=== PATIENT | female | born 1980 | race Caucasian/White ===

== ENCOUNTER 2023-11-06 17:45 | Inpatient (IN) | payer BC ==
[2023-11-06] MEDS ORDERED: NALOXONE 0.4 MG/ML 1 ML VIAL IV PRN (19:17)
[2023-11-06] MEDS ORDERED: ONDANSETRON 4 MG/2 ML VIAL IVP PRN (19:17)
--- NOTE | 2023-11-06 19:17 | ED ---
Animal Bite HPI - General Chief Complaint: Skin/Abscess/Foreign Body Stated Complaint: cat bite Time Seen by Provider: 11/06/23 18:52 Source: patient, RN notes reviewed, old records reviewed Mode of arrival: ambulatory Limitations: no limitations - History of Present Illness Initial Comments: This is a 43 female to ER for evaluation of cat bite cat bite to right hand, initially patient did have minimal pain that went away no real significant bleeding. Patient noticed really no symptoms yesterday and then had significant amount of swelling in the hand and streaking up the arm noted today with chills fevers body aches and just generalized feeling unwell. Patient has no medical history takes no medications no other complaints MD Complaint: animal bite, other (Cat bite right hand) -: days(s) (2) Right: Arm, Elbow, Forearm, Hand Animal: cat Description: household pet Mechanism: bite Pain Description: sharp Severity scale (1-10): 7 Associated Symptoms: none Treatments Prior to Arrival: other (0) - Related Data Previous Rx's Medication Instructions Recorded Amoxic-Pot Clav 875-125Mg 1 tab PO BID 10 Days #20 tab 11/09/23 [Augmentin 875-125] Allergies Allergy/AdvReac Type Severity Reaction Status Date / Time No Known Allergies Allergy Verified 11/06/23 19:13 Review of Systems ROS Statement: Those systems with pertinent positive or pertinent negative responses have been documented in the HPI. ROS Other: All systems not noted in ROS Statement are negative. Past Medical History Past Medical History: No Reported History History of Any Multi-Drug Resistant Organisms: None Reported Past Surgical History: Adenoidectomy, Tonsillectomy Additional Past Surgical History / Comment(s): back surgery Past Psychological History: No Psychological Hx Reported Smoking Status: Current every day smoker Past Alcohol Use History: Occasional Past Drug Use History: None Reported General Exam Limitations: no limitations General appearance: alert, in no apparent distress Head exam: Present: atraumatic, normocephalic, normal inspection Eye exam: Present: normal appearance, PERRL, EOMI. Absent: scleral icterus, conjunctival injection, periorbital swelling ENT exam: Present: normal exam, mucous membranes moist Neck exam: Present: normal inspection. Absent: tenderness, meningismus, lympha denopathy Respiratory exam: Present: normal lung sounds bilaterally. Absent: respiratory distress, wheezes, rales, rhonchi, stridor Cardiovascular Exam: Present: regular rate, normal rhythm, normal heart sounds. Absent: systolic murmur, diastolic murmur, rubs, gallop, clicks GI/Abdominal exam: Present: soft, normal bowel sounds. Absent: distended, tenderness, guarding, rebound, rigid Extremities exam: Present: normal inspection, full ROM, normal capillary refill. Absent: tenderness, pedal edema, joint swelling, calf tenderness Back exam: Present: normal inspection Neurological exam: Present: alert, oriented X3, CN II-XII intact Psychiatric exam: Present: normal affect, normal mood Skin exam: Present: warm, dry, intact, normal color. Absent: rash Course Vital Signs 11/06/23 11/06/23 11/06/23 18:07 19:47 21:13 Temperature 99.4 F Pulse Rate 97 80 82 Respiratory 18 16 17 Rate Blood Pressure 119/86 126/83 104/62 O2 Sat by Pulse 95 97 96 Oximetry - Reevaluation(s) Reevaluation #1: 11/06/23 19:15 Medical records reviewed Reevaluation #2: 11/06/23 19:15 Patient symptoms unchanged Reevaluation #3: 11/06/23 19:15 Patient informed of results questions answered Reevaluation #4: Was pt. sent in by a medical professional or institution ([facility], [employer], urgent care, hospital, or assisted...) When possible be specific @ -no Did you speak to anyone other than the patient for history (EMS, parent, family, police, friend...)? What history was obtained from this source @ -no Did you review nursing and triage notes (agree or disagree)? Why? @ -agree Are old charts reviewed (outside hosp., previous admission, EMS record, old EKG, old radiological studies, urgent care reports/EKG's, assisted records)? Report findings @ -yes Differential Diagnosis (chest pain, altered mental status, abdominal pain women, abdominal pain men, vaginal bleeding, weakness, fever, dyspnea, syncope, hea dache, dizziness, GI bleed, back pain, seizure, CVA, palpatations, mental health, musculoskeletal)? @ -prior EKG interpreted by me (3pts min.). @ -no X-rays interpreted by me (1pt min.). @ -no CT interpreted by me (1pt min.). @ -no U/S interpreted by me (1pt. min.). @ -no What testing was considered but not performed or refused? (CT, X-rays, U/S, labs)? Why? @ -none What meds were considered but not given or refused? Why? @ -none Did you discuss the management of the patient with other professionals (professionals i.e. Dr., PA, [employer], lab, RT, psych nurse, social worker aide, cafeteria supervisor, teacher, radiation safety officer, family independence case manager)? Give summary @ -no Was smoking cessation discussed for >3mins.? @ -no Was critical care preformed (if so, how long)? @ -no Were there social determinants of health that impacted care today? How? (Homelessness, low income, unemployed, alcoholism, drug addiction, young sportation, low edu. Level, literacy, decrease access to med. care, fdc, rehab)? @ -none Was there de-escalation of care discussed even if they declined (Discuss DNR or withdrawal of care, Hospice)? DNR status @ -no What co-morbidities impacted this encounter? (DM, HTN, Smoking, COPD, CAD, Cancer, CVA, ARF, Chemo, Hep., AIDS, mental health diagnosis, sleep apnea, morbid obesity)? @ -none Was patient admitted / discharged? Hospital course, mention meds given and route, prescriptions, significant lab abnormalities, going to OR and other pertinent info. @ - 43 female to ER with capillary to the right hand, patient has significant swelling to the right hand and arm severe with streaking, patient admitted on IV antibiotics and pain control Admitted Undiagnosed new problem with uncertain prognosis? @ -no Drug Therapy requiring intensive monitoring for toxicity (Heparin, Nitro, Insulin, Cardizem)? @ -no Were any procedures done? @ -no Diagnosis/symptom? @ -Cat bite with cellulitis and infection Acute, or Chronic, or Acute on Chronic? @ -Acute Uncomplicated (without systemic symptoms) or Complicated (systemic symptoms)? @ -Complicated Side effects of treatment? @ -no Exacerbation, Progression, or Severe Exacerbation? @ -exacerbation Poses a threat to patient's life @ -yes significant cat bite with infection - Consultations Consultation #1: Spoke with [facility] who agrees to admit this patient Medical Decision Making - Medical Decision Making 43 female to ER with capillary to the right hand, patient has significant swelling to the right hand and arm severe with streaking, patient admitted on IV antibiotics and pain control - Lab Data Result diagrams: 11/09/23 07:16 11/07/23 04:26 Lab Results 11/06/23 11/06/23 11/06/23 Range/Units 19:06 19:06 19:06 WBC 13.4 H (3.8-10.6) k/uL RBC 4.42 (3.80-5.40) m/uL Hgb 12.9 (11.4-16.0) gm/dL Hct 39.8 (34.0-46.0) % MCV 90.1 (80.0-100.0) fL MCH 29.3 (25.0-35.0) pg MCHC 32.5 (31.0-37.0) g/dL RDW 15.1 (11.5-15.5) % Plt Count 206 (150-450) k/uL MPV 9.4 Neutrophils % 72 % Lymphocytes % 18 % Monocytes % 8 % Eosinophils % 1 % Basophils % 0 % Neutrophils # 9.6 H (1.3-7.7) k/uL Lymphocytes # 2.4 (1.0-4.8) k/uL Monocytes # 1.0 (0-1.0) k/uL Eosinophils # 0.2 (0-0.7) k/uL Basophils # 0.0 (0-0.2) k/uL PT 10.1 (10.0-12.5) sec INR 0.9 (<1.2) APTT 25.1 (22.0-30.0) sec Sodium 138 (137-145) mmol/L Potassium 3.7 (3.5-5.1) mmol/L Chloride 105 (98-107) mmol/L Carbon Dioxide 26 (22-30) mmol/L Anion Gap 7 mmol/L BUN 9 (7-17) mg/dL Creatinine 0.70 (0.52-1.04) mg/dL Est GFR (CKD-EPI)AfAm >90 (>60 ml/min/1.73 sqM) Est GFR (CKD-EPI)NonAf >90 (>60 ml/min/1.73 sqM) Glucose 88 (74-99) mg/dL Plasma Lactic Acid Bennie (0.7-2.0) mmol/L Calcium 9.4 (8.4-10.2) mg/dL Phosphorus 3.4 (2.5-4.5) mg/dL Magnesium 1.9 (1.6-2.3) mg/dL Total Bilirubin 0.6 (0.2-1.3) mg/dL AST 25 (14-36) U/L ALT 15 (4-34) U/L Alkaline Phosphatase 86 (38-126) U/L Troponin I (0.000-0.034) ng/mL NT-Pro-B Natriuret Pep 109 pg/mL Total Protein 6.8 (6.3-8.2) g/dL Albumin 4.2 (3.5-5.0) g/dL 11/06/23 11/06/23 Range/Units 19:06 19:06 WBC (3.8-10.6) k/uL RBC (3.80-5.40) m/uL Hgb (11.4-16.0) gm/dL Hct (34.0-46.0) % MCV (80.0-100.0) fL MCH (25.0-35.0) pg MCHC (31.0-37.0) g/dL RDW (11.5-15.5) % Plt Count (150-450) k/uL MPV Neutrophils % % Lymphocytes % % Monocytes % % Eosinophils % % Basophils % % Neutrophils # (1.3-7.7) k/uL Lymphocytes # (1.0-4.8) k/uL Monocytes # (0-1.0) k/uL Eosinophils # (0-0.7) k/uL Basophils # (0-0.2) k/uL PT (10.0-12.5) sec INR (<1.2) APTT (22.0-30.0) sec Sodium (137-145) mmol/L Potassium (3.5-5.1) mmol/L Chloride (98-107) mmol/L Carbon Dioxide (22-30) mmol/L Anion Gap mmol/L BUN (7-17) mg/dL Creatinine (0.52-1.04) mg/dL Est GFR (CKD-EPI)AfAm (>60 ml/min/1.73 sqM) Est GFR (CKD-EPI)NonAf (>60 ml/min/1.73 sqM) Glucose (74-99) mg/dL Plasma Lactic Acid Bennie 1.3 (0.7-2.0) mmol/L Calcium (8.4-10.2) mg/dL Phosphorus (2.5-4.5) mg/dL Magnesium (1.6-2.3) mg/dL Total Bilirubin (0.2-1.3) mg/dL AST (14-36) U/L ALT (4-34) U/L Alkaline Phosphatase (38-126) U/L Troponin I <0.012 (0.000-0.034) ng/mL NT-Pro-B Natriuret Pep pg/mL Total Protein (6.3-8.2) g/dL Albumin (3.5-5.0) g/dL - EKG Data -: EKG Interpreted by Me (EKG is sinus 86 RI 156 QRS 104 QTc 445) Disposition Clinical Impression: Cat bite of right hand Disposition: ADMITTED IP TO THIS HOSP Condition: Serious Is patient prescribed a controlled substance at d/c from ED?: No Time of Disposition: 19:35
[2023-11-06] MEDS: SODIUM CHLORIDE 0.9% 1,000 ML IV STA ×2 (19:32→19:34)
[2023-11-06] MEDS: PIPERACILLIN-TAZOBACTAM 3.375 GM in SODIUM CHLORIDE 0.9% 100 ML IVPB STA (19:36)
[2023-11-06] MEDS: ONDANSETRON 4 MG/2 ML VIAL IVP STA (19:40)
[2023-11-06] MEDS: MORPHINE SULFATE 4 MG/ML SYRINGE IV STA (19:40)
[2023-11-06 20:36] LABS: Basophils % (A) 0 %; Eosinophils # (A) 0.2 k/uL (0-0.7); Eosinophils % (A) 1 %; HCT 39.8 % (34.0-46.0); HGB 12.9 gm/dL (11.4-16.0); Lymphocytes # (A) 2.4 k/uL (1.0-4.8); Lymphocytes % (A) 18 %; MCH 29.3 pg (25.0-35.0); MCHC 32.5 g/dL (31.0-37.0); MCV 90.1 fL (80.0-100.0); Mean Platelet Volume 9.4; Monocytes % (A) 8 %; Neutrophils # (A) 9.6 k/uL (1.3-7.7); Neutrophils % (A) 72 %; Platelet Count 206 k/uL (150-450); RBC 4.42 m/uL (3.80-5.40); RDW 15.1 % (11.5-15.5); WBC 13.4 k/uL (3.8-10.6)
[2023-11-06 20:53] LABS: INR 0.9 (<1.2); Partial Thromboplastin Time 25.1 sec (22.0-30.0); Prothrombin Time 10.1 sec (10.0-12.5)
[2023-11-06 21:05] LABS: ALT 15 U/L (4-34); AST 25 U/L (14-36); African American GFR (CKD) >90 (>60 ml/min/1.73 sqM); Albumin 4.2 g/dL (3.5-5.0); Alkaline Phosphatase 86 U/L (38-126); Anion Gap 7 mmol/L; Blood Urea Nitrogen 9 mg/dL (7-17); Calcium 9.4 mg/dL (8.4-10.2); Carbon Dioxide 26 mmol/L (22-30); Chloride 105 mmol/L (98-107); Glucose 88 mg/dL (74-99); Magnesium 1.9 mg/dL (1.6-2.3); Non-African American GFR(CKD) >90 (>60 ml/min/1.73 sqM); Phosphorus 3.4 mg/dL (2.5-4.5); Potassium 3.7 mmol/L (3.5-5.1); Sodium 138 mmol/L (137-145); Total Bilirubin 0.6 mg/dL (0.2-1.3); Total Protein 6.8 g/dL (6.3-8.2)
[2023-11-06 21:09] LABS: NT-Pro-B-Type Natriuretic Pept 109 pg/mL
[2023-11-07] MEDS: PIPERACILLIN-TAZOBACTAM 3.375 GM in SODIUM CHLORIDE 0.9% 100 ML IVPB SCH (03:03)
[2023-11-07] MEDS: MORPHINE SULFATE 4 MG/ML SYRINGE IV PRN (03:06)
[2023-11-07 09:24] LABS: Basophils # (A) 0.04 X 10*3/uL (0.00-0.10); Basophils % (A) 0.4 %; Eosinophils # (A) 0.33 X 10*3/uL (0.04-0.35); HCT 36.6 % (37.2-46.3); HGB 11.3 g/dL (12.0-15.0); Lymphocytes # (A) 2.43 X 10*3/uL (0.90-5.00); Lymphocytes % (A) 21.7 %; MCHC 30.9 g/dL (32.0-37.0); MCV 90.8 FL (80.0-97.0); Mean Platelet Volume 11.8 FL (9.5-12.2); Monocytes # (A) 1.16 X 10*3/uL (0.20-1.00); Monocytes % (A) 10.4 %; NRBC Per 100 WBC 0 X 10*3/uL (0.00-0.01); Neutrophils # (A) 7.19 X 10*3/uL (1.80-7.70); Neutrophils % (A) 64.2 %; Platelet Count 192 X 10*3/uL (140-440); RBC 4.03 X 10*6/uL (4.10-5.20); RDW 15.6 % (11.5-14.5); WBC 11.18 X 10*3/uL (4.50-10.00)
--- NOTE | 2023-11-07 09:59 | P.CNOR ---
History of Present Illness - [facility] Consult date: 11/07/23 Consult reason: other (Right hand pain status post cat bite) History of present illness: Patient is a very pleasant 43-year-old female who had a cat bite in her right hand 2 days ago. It was a stray cat and initially after the bite it was not giving her any problems but then started to swell and give pain. She presented to the emergency room when she had significant swelling over the dorsum of her right hand particularly at her index and middle finger and was having redness swelling and streaking extending up her arm. She was started on IV antibiotics and feels that she is having great improvement today. She says that the redness and streaking up her arm is essentially gone. She says the area is mainly localized on the back of her hand particularly at her index and middle finger and somewhat on the volar aspect of her hand around her MCP joints. She says she can move her hands well. She denies any fevers. She denies any specific numbness and tingling but feels sore and tight all over her hands. She denies any other injury to your hands or fingers. Denies any prior problems with her hands. She is right-hand dominant. Review of Systems She had some chills yesterday. She says it is not completely resolved. She feels her right arm is doing much better. She denies any prior injury to her hand or fingers. She normally does not have any limitations at her upper extremities. She is right-hand dominant Past Medical History Past Medical History: No Reported History History of Any Multi-Drug Resistant Organisms: None Reported Past Surgical History: Adenoidectomy, Tonsillectomy Additional Past Surgical History / Comment(s): back surgery Past Anesthesia/Blood Transfusion Reactions: No Reported Reaction Past Psychological History: No Psychological Hx Reported Smoking Status: Current every day smoker Past Alcohol Use History: Occasional Past Drug Use History: None Reported Medications and Allergies Home Medications Medication Instructions Recorded Confirmed Type No Known Home Medications 11/06/23 11/06/23 History Allergies Allergy/AdvReac Type Severity Reaction Status Date / Time No Known Allergies Allergy Verified 11/06/23 19:13 Physical Examination Osteopathic Statement: *. No significant issues noted on an osteopathic structural exam other than those noted in the History and Physical/Consult. - Wrist & Hand right Location of pain: dorsal hand (There is no significant erythema. There is no specific point of abscess. The puncture wounds on the finger appear clear. There is diffuse swelling at the wrist hand and fingers.) Wrist pain modifiers: with motion, terminal flexion Index finger pain modifiers: with motion Long finger pain modifiers: with motion Symptoms: dorsal hand swelling (There is no apparent abscess or specific fluid collection. There is diffuse swelling. She is able to flex her hand and fingers. She does not have pain out of proportion. There is some tenderness at the PIP and MCP joints at her index and long fingers. She says she has great improvement from yes) Appearance: hand warmth (diffuse), puncture Tenderness with palpation: index finger, long finger ROM: long finger MP joint: 50 degrees ROM: long finger PIP joint: 50 degrees Results - Labs Labs: Abnormal Lab Results - Last 24 Hours (Table) 11/06/23 11/07/23 Range/Units 19:06 04:26 WBC 13.4 H 11.18 H (3.8-10.6) k/uL RBC 4.03 L (4.10-5.20) X 10*6/uL Hgb 11.3 L (12.0-15.0) g/dL Hct 36.6 L (37.2-46.3) % MCHC 30.9 L (32.0-37.0) g/dL RDW 15.6 H (11.5-14.5) % Neutrophils # 9.6 H (1.3-7.7) k/uL Monocytes # 1.16 H (0.20-1.00) X 10*3/uL H & H 11/06/23 11/07/23 Range/Units 19:06 04:26 Hgb 12.9 11.3 L (11.4-16.0) gm/dL Hct 39.8 36.6 L (34.0-46.0) % Coagulation 11/06/23 Range/Units 19:06 INR 0.9 (<1.2) Result Diagrams: 11/07/23 04:26 11/06/23 19:06 Assessment and Plan Assessment: Status post cat bite at the right hand Infection with cellulitis at the right upper extremity Right hand and wrist pain located primarily at the proximal index and long finger Significant improvement from yesterday with the IV antibiotics Plan: Status post cat bite at the right hand Infection with cellulitis at the right upper extremity Right hand and wrist pain located primarily at the proximal index and long finger Significant improvement from yesterday with the IV antibiotics The patient sustained a cat bite a couple days ago and was experiencing infection. It seems to be primarily cellulitis as she has had great improvement with her IV antibiotics. She is localizing more at her index and long finger where the bite occurred. There is no apparent fluid collection or abscess discretely. There is no significant erythema over the area. 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 She does not have any pain out of proportion with her exam. She feels she is making great improvement and I think that she should continue with the IV antibiotics for another day. Today I would not plan on surgical intervention. If she continues to improve with the IV antibiotics she may be able to convert over to oral medication and close follow-up. However if she is having worsening or if the area becomes to ahead where there is an obvious fluid collection we could also consider surgical intervention for irrigation and debridement. I discussed this with her and she understands. We will plan to monitor overnight with the IV antibiotics. Will keep her n.p.o. after midnight tonight in case her symptoms worsen or the area becomes discrete for possible surgery. Will follow her closely, she will be n.p.o. after midnight. Will make further decisions for continuing conservative treatment versus surgical intervention in the morning. I discussed the injury with her and the fact that she is having significant imp rovement. I discussed the risk complications alternatives benefits of the various treatments ranging from conservative to surgical. I answered her questions best my ability limb she understand and she we will proceed as above to be n.p.o. after midnight to have further determination on continued care tomorrow.
[2023-11-07 10:19] LABS: ALT 10 U/L (8-44); AST 17 U/L (13-35); Albumin 3.5 g/dL (3.8-4.9); Albumin/Globulin Ratio 1.75 Ratio (1.60-3.17); Alkaline Phosphatase 70 U/L (41-126); BUN/Creat Ratio 9.29 Ratio (12.00-20.00); Blood Urea Nitrogen 6.5 mg/dL (9.0-27.0); Calcium 8.4 mg/dL (8.7-10.3); Carbon Dioxide 21.8 mmol/L (21.6-31.8); Chloride 107 mmol/L (96-109); Glucose 99 mg/dL (70-110); Lipase 196 U/L (14-63); Magnesium 1.9 mg/dL (1.5-2.4); Phosphorus 3.6 mg/dL (2.4-5.1); Potassium 3.7 mmol/L (3.5-5.5); Sodium 139 mmol/L (135-145); Total Bilirubin 0.3 mg/dL (0.3-1.2); Total Protein 5.5 g/dL (6.2-8.2)
--- NOTE | 2023-11-07 13:36 | P.HPIM ---
History of Present Illness Patient is a pleasant 43 years old female with no significant past medical history. Presents because of right hand pain and swelling. It happened after a cat bit her on night on 11/03. 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 Other than that patient denies any other specific complaints She is afebrile, she has mild leukocytosis, other labs are reviewed and they are unremarkable She started on Zosyn Review of Systems Review of systems CONSTITUTIONAL: No fever, no malaise, no fatigue. HEENT: No recent visual problems or hearing problems. Denied any sore throat. CARDIOVASCULAR: No orthopnea, PND, no palpitations, no syncope. PULMONARY: No shortness of breath, no cough, no hemoptysis. GASTROINTESTINAL: No diarrhea, no nausea, no vomiting, no abdominal pain. Normoactive bowel sounds. NEUROLOGICAL: No headaches, no weakness, no numbness. HEMATOLOGICAL: Denies any bleeding or petechiae. GENITOURINARY: Denies any burning micturition, frequency, or urgency. MUSCULOSKELETAL/RHEUMATOLOGICAL: Denies any joint pain, swelling, or any muscle pain. ENDOCRINE: Denies any polyuria or polydipsia. Past Medical History Past Medical History: No Reported History History of Any Multi-Drug Resistant Organisms: None Reported Past Surgical History: Adenoidectomy, Tonsillectomy Additional Past Surgical History / Comment(s): back surgery Past Anesthesia/Blood Transfusion Reactions: No Reported Reaction Past Psychological History: No Psychological Hx Reported Smoking Status: Current every day smoker Past Alcohol Use History: Occasional Past Drug Use History: None Reported Medications and Allergies Home Medications Medication Instructions Recorded Confirmed Type No Known Home Medications 11/06/23 11/06/23 History Allergies Allergy/AdvReac Type Severity Reaction Status Date / Time No Known Allergies Allergy Verified 11/06/23 19:13 Physical Exam Vitals: Vital Signs Temp Pulse Pulse Resp BP BP Pulse Ox 11/07/23 12:55 98.1 F 71 16 128/85 98 11/07/23 08:00 98.7 F 90 17 111/72 98 11/07/23 07:57 98.4 F 72 18 132/71 95 11/07/23 03:10 99.3 F 75 16 111/73 94 L 11/06/23 21:59 98.4 F 76 16 113/74 97 11/06/23 21:13 82 17 104/62 96 11/06/23 19:47 80 16 126/83 97 11/06/23 18:07 99.4 F 97 18 119/86 95 Intake and Output 11/06/23 11/07/23 11/07/23 22:59 06:59 14:59 Other: # Voids 3 Weight 90.718 kg 90.718 kg GENERAL: The patient is alert and oriented x3, not in any acute distress. Well developed, well nourished. HEENT: Pupils are round and equally reacting to light. EOMI. No scleral icterus. No conjunctival pallor. Normocephalic, atraumatic. No pharyngeal erythema. No thyromegaly. CARDIOVASCULAR: S1 and S2 present. No murmurs, rubs, or gallops. PULMONARY: Chest is clear to auscultation, no wheezing , no crackles. ABDOMEN: Soft, nontender, nondistended, normoactive bowel sounds. No palpable organomegaly. MUSCULOSKELETAL: No joint swelling or deformity. -EXTREMITIES: No cyanosis, clubbing, or pedal edema. Right hand swelling tender and mildly erythematous and mildly pinky, there is 2 puncture sites on the dorsum and ventral of the index proximal phalanx. There is some faint swelling and pinkish goes up to the forearm and the distal arm, currently to be seen but the patient states that it was worse. NEUROLOGICAL: Gross neurological examination did not reveal any focal deficits. SKIN: No rashes. no petechiae. Results CBC & Chem 7: 11/07/23 04:26 11/07/23 04:26 Labs: Abnormal Lab Results - Last 24 Hours (Table) 11/06/23 11/07/23 11/07/23 Range/Units 19:06 04:26 04:26 WBC 13.4 H 11.18 H (3.8-10.6) k/uL RBC 4.03 L (4.10-5.20) X 10*6/uL Hgb 11.3 L (12.0-15.0) g/dL Hct 36.6 L (37.2-46.3) % MCHC 30.9 L (32.0-37.0) g/dL RDW 15.6 H (11.5-14.5) % Neutrophils # 9.6 H (1.3-7.7) k/uL Monocytes # 1.16 H (0.20-1.00) X 10*3/uL BUN 6.5 L (9.0-27.0) mg/dL BUN/Creatinine Ratio 9.29 L (12.00-20.00) Ratio Calcium 8.4 L (8.7-10.3) mg/dL Total Protein 5.5 L (6.2-8.2) g/dL Albumin 3.5 L (3.8-4.9) g/dL Lipase 196 H (14-63) U/L Thrombosis Risk Factor Assmnt - Choose All That Apply Any of the Below Risk Factors Present?: Yes Each Factor Represents 1 point: Age 41-60 years, Varicose veins Other congenital or acquired thrombophilia - If yes, enter type in comment: No Thrombosis Risk Factor Assessment Total Risk Factor Score: 2 Thrombosis Risk Factor Assessment Level: Low Risk Assessment and Plan Assessment: Assessment/plan: -Right hand/index finger cat bite complicated with right hand cellulitis invol ving the right hand and extending to a lesser extent into the right forearm and distal arm which is improving. Orthopedic team evaluated the patient and they recommended no surgical intervention now. Patient currently treated with Zosyn. We are going to consult infectious disease team for further recommendation -Nicotine dependence, patient counseled and she agrees to quit. She declines nicotine patch GI and DVT prophylaxis, patient is mobile on the low risk. No need for GI prophylaxis
[2023-11-07] MEDS: AMPICILLIN-SULBACTAM 3 GM in SODIUM CHLORIDE 0.9% 100 ML IVPB SCH (17:53)
--- NOTE | 2023-11-08 06:58 | XR ---
EXAMINATION TYPE: XR hand complete RT DATE OF EXAM: 11/07/2023 9:59 AM CLINICAL INDICATION:Female, 43 years old with history of Swelling and pain status post cat bite; [facility] COMPARISON: None TECHNIQUE: 3 views FINDINGS: Osseous mineralization appears appropriate. No destructive bony lesion. No periostitis. No acute frac ture or dislocation. Joint spaces are maintained. Unremarkable soft tissues. No radiopaque foreign dileep dy is seen. IMPRESSION: No evidence of an acute osseous abnormality. No radiopaque foreign body.
--- NOTE | 2023-11-08 08:38 | P.PN ---
Progress Note - Text Progress Note Date: 11/08/23 Orthopedics: History of present illness: Patient is a very pleasant 50-year-old female who is seen and examined at bedside for further evaluation of her right wrist. He has been experiencing right hand swelling and erythema following a cat bite. She has been on antibiotic IV medication with Unasyn. Since being seen and examined yesterday, she has had significant improvement of her symptoms overall. She is not having any significant cellulitis at her right hand or up her right upper extremity. She has less swelling at her right hand. She has better range of motion of her right hand. She does not have a palpable fluid collection. She is very happy with her progress and feels she is ready for discharge today. She has been seen and examined by multiple medical providers including infectious disease, general surgery, and medicine. She is admitted to medicine. We did discuss she would need clearance by multiple medical providers prior to discharge home. Infectious disease will manage antibiotic medications. Patient has been NPO status. We will discontinue NPO and she may eat a regular diet. Physical Exam: Patient is awake, alert, and oriented 3 Vital signs stable Good chest excursion with deep inspiration and expiration Patient is able to perform active flexion and extension of the right wrist Mild generalized swelling over the dorsum of the right hand Patient is able to wiggle all fingers of the right hand and make a fist without difficulty No obvious cellulitis of the right upper extremity No streaking up the right upper extremity No palpable fluid collection over the area of the cat bite at the MCP Assessment: Right and erythema and swelling Status post right hand cat bite Right hand infection with cellulitis of the upper extremity Plan: 1. Patient sustained an infection with cellulitis at her right hand and right upper extremity status post cat bite. She has been on antibiotic medication IV with Unasyn per infectious disease. Since being seen examined yesterday, she had significant improvement of her symptoms overall. She does not have a palpable fluid collection at her right hand. The cellulitis has had significant proven. She is able to perform some wrist flexion and extension. She is able to analytics intern on the right. Currently, she may resume a regular diet. We are not planning for any surgical intervention in her right hand as she has had significant proved overall. We feel she could continue with conservative treatment with antibiotic medication. From an orthopedic standpoint, patient is cleared for discharge with close follow-up in the outpatient setting. Currently, we will plan to have her follow-up in the next [address] Patterson at [facility]. 2. Patient will continue be seen examined multiple medical providers including medicine and infectious disease. She will need to be cleared by these providers prior to discharge home. We would plan for infectious disease to prescribe antibiotic medications.
--- NOTE | 2023-11-08 13:13 | P.CONS ---
History of Present Illness - Reason for Consult Consult date: 11/07/23 Hand infection Requesting physician: Davey Gonzalez - Chief Complaint Right hand pain and swelling x few days - History of Present Illness Patient is a 43-year-old female with no significant past medical history current everyday smoker apparently the patient did have a cat bite to the right hand about 3 days present before presentation to the hospital patient mention the next day she has to go for concert and she decided to go there instead of seeking medical attention subsequently patient noticed to have increasing swelling redness and pain to the right hand patient describing the pain to be sharp moderate in intensity without any radiation with associated swelling redness and did not have any drainage no high-grade fever with the same for the patient present to the hospital on arrival to the ER she did have a low- grade fever of 99.4 F patient was not tachycardic or hypotensive patient did have white count of 13.4 creatinine 0.70 liver enzymes are normal blood cultures obtained which are currently pending patient did have a x-ray of the hand no evidence for acute bony abnormality patient was started on Zosyn infectious disease was consulted for further management of antibiotic therapy Review of Systems Positive point and negatives has been mentioned in the HPI, complete review of systems was performed and all other systems are negative Past Medical History Past Medical History: No Reported History History of Any Multi-Drug Resistant Organisms: None Reported Past Surgical History: Adenoidectomy, Tonsillectomy Additional Past Surgical History / Comment(s): back surgery Past Anesthesia/Blood Transfusion Reactions: No Reported Reaction Past Psychological History: No Psychological Hx Reported Smoking Status: Current every day smoker Past Alcohol Use History: Occasional Past Drug Use History: None Reported Medications and Allergies Home Medications Medication Instructions Recorded Confirmed Type No Known Home Medications 11/06/23 11/06/23 History Allergies Allergy/AdvReac Type Severity Reaction Status Date / Time No Known Allergies Allergy Verified 11/06/23 19:13 Physical Exam Vitals: Vital Signs Temp Pulse Pulse Resp BP BP Pulse Ox 11/07/23 12:55 98.1 F 71 16 128/85 98 11/07/23 08:00 98.7 F 90 17 111/72 98 11/07/23 07:57 98.4 F 72 18 132/71 95 11/07/23 03:10 99.3 F 75 16 111/73 94 L 11/06/23 21:59 98.4 F 76 16 113/74 97 11/06/23 21:13 82 17 104/62 96 11/06/23 19:47 80 16 126/83 97 11/06/23 18:07 99.4 F 97 18 119/86 95 Intake and Output 11/07/23 11/07/23 11/07/23 06:59 14:59 22:59 Other: # Voids 3 Weight 90.718 kg GENERAL DESCRIPTION: Middle-aged female lying in bed, no distress. No tachypnea or accessory muscle of respiration use. HEENT: Shows Pallor , no scleral icterus. Oral mucous membrane is dry. No pharyngeal erythema or thrush NECK: Trachea central, no thyromegaly. LUNGS: Unlabored breathing. Clear to auscultation anteriorly. No wheeze or crackle. HEART: S1, S2, regular rate and rhythm. No loud murmur ABDOMEN: Soft, no tenderness , guarding or rigidity, no organomegaly EXTREMITIES: Right hand dorsum did have swelling redness warm and tender to touch SKIN: No rash, no masses palpable. NEUROLOGICAL: The patient is awake, alert, oriented x3, mood and affect normal. Results CBC & Chem 7: 11/07/23 04:26 11/07/23 04:26 Labs: Abnormal Lab Results - Last 24 Hours (Table) 11/06/23 11/07/23 11/07/23 Range/Units 19:06 04:26 04:26 WBC 13.4 H 11.18 H (3.8-10.6) k/uL RBC 4.03 L (4.10-5.20) X 10*6/uL Hgb 11.3 L (12.0-15.0) g/dL Hct 36.6 L (37.2-46.3) % MCHC 30.9 L (32.0-37.0) g/dL RDW 15.6 H (11.5-14.5) % Neutrophils # 9.6 H (1.3-7.7) k/uL Monocytes # 1.16 H (0.20-1.00) X 10*3/uL BUN 6.5 L (9.0-27.0) mg/dL BUN/Creatinine Ratio 9.29 L (12.00-20.00) Ratio Calcium 8.4 L (8.7-10.3) mg/dL Total Protein 5.5 L (6.2-8.2) g/dL Albumin 3.5 L (3.8-4.9) g/dL Lipase 196 H (14-63) U/L Assessment and Plan (1) Cellulitis of right hand Current Visit: Yes Status: Acute Code(s): L03.113 - CELLULITIS OF RIGHT UPPER LIMB SNOMED Code(s): 52892676209594135 (2) Cat bite of right hand Current Visit: Yes Status: Acute Code(s): S61.451A - OPEN BITE OF RIGHT HAND, INITIAL ENCOUNTER; W55.01XA - BITTEN BY CAT, INITIAL ENCOUNTER SNOMED Code(s): 691895670 Plan: 1patient with right hand cat bite cellulitis will need to cover for the oral brandon of the cat with no evidence of any more abnormality on the x-ray patient did have elevated white count and low-grade fever has been eval by orthopedics not recommending any surgical drainage 2we will discontinue Zosyn 3start patient Unasyn 3 g every 6 hours and monitor clinical course closely We will follow on clinical condition and cultures to further adjust medication if needed Thank you for this consultation we will follow the patient along with you Dictation was produced using [employer] dictation software. please excuse any grammatical, word or spelling errors. Time with Patient: Greater than 30
--- NOTE | 2023-11-09 06:52 | P.PN ---
Subjective Progress Note Date: 11/08/23 Principal diagnosis: Reason for follow-up is right hand cat bite cellulitis Patient is a 43-year-old female presenting to the hospital with the right hand pain swelling redness with a history of cat bite admitted to the hospital for cat bite cellulitis. On today's evaluation that is 11/08/2023, patient has been afebrile, patient is breathing comfortably and is currently on room air, patient denies having any significant cough no chest pain shortness of breath, patient denies nausea vomiting or diarrhea and no abdominal pain right hand pain swelling has improved no open wound or any drainage. Patient white count is down to 11.18, creatinine 0.7 blood cultures are pending Objective - Vital Signs Vital signs: Vital Signs Temp 98.5 F 11/08/23 06:56 Pulse 64 11/08/23 06:56 Resp 18 11/08/23 06:56 BP 118/76 11/08/23 06:56 Pulse Ox 99 11/08/23 06:56 FiO2 Intake & Output 11/07/23 11/08/23 11/08/23 18:59 06:59 18:59 Other: # Voids 3 2 # Bowel Movements 1 - Exam GENERAL DESCRIPTION: Middle-age female lying in bed in no distress RESPIRATORY SYSTEM: Unlabored breathing , decreased breath sounds at bases HEART: S1 S2 regular rate and rhythm , ABDOMEN: Soft , no tenderness EXTREMITIES: Right hand swelling redness has decreased - Labs CBC & Chem 7: 11/07/23 04:26 11/07/23 04:26 Labs: Microbiology - Last 24 Hours (Table) 11/06/23 19:06 Blood Culture - Preliminary Blood 11/06/23 19:00 Blood Culture - Preliminary Blood Assessment and Plan (1) Cellulitis of right hand Current Visit: Yes Status: Acute Code(s): L03.113 - CELLULITIS OF RIGHT UPPER LIMB SNOMED Code(s): 68911234679441759 (2) Cat bite of right hand Current Visit: Yes Status: Acute Code(s): S61.451A - OPEN BITE OF RIGHT H AND, INITIAL ENCOUNTER; W55.01XA - BITTEN BY CAT, INITIAL ENCOUNTER SNOMED Code(s): 268111961 Plan: 1patient with right hand cat bite cellulitis will need to cover for the oral brandon of the cat with no evidence of any more abnormality on the x-ray patient did have elevated white count and low-grade fever has been eval by orthopedics not recommending any surgical drainage 2patient has shown some clinical improvement we will continue Unasyn 3 g every 6 hours for another 24 hours before transition to oral antibiotics Multiple question Answered Dictation was produced using [employer] dictation software. please excuse any grammatical, word or spelling errors. Time with Patient: Less than 30
--- NOTE | 2023-11-09 07:00 | P.PN ---
Subjective Patient is a pleasant 43 years old female with no significant past medical history. Presents because of right hand pain and swelling. It happened after a cat bit her on night on 11/03. 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 Other than that patient denies any other specific complaints She is afebrile, she has mild leukocytosis, other labs are reviewed and they are unremarkable She started on Zosyn 11/08/23 Patient cellulitis of the right hand is improving, it is less swollen and tender today, she has stronger handgrip but not back to normal Patient eager to go home No new symptoms ID team recommending another 24 hours with IV antibiotic, currently on Unasyn Objective - Vital Signs Vital signs: Vital Signs Temp 98.6 F 11/08/23 13:36 Pulse 71 11/08/23 13:36 Resp 18 11/08/23 13:36 BP 111/70 11/08/23 13:36 Pulse Ox 98 11/08/23 13:36 FiO2 Intake & Output 11/07/23 11/08/23 11/08/23 18:59 06:59 18:59 Other: # Voids 3 2 # Bowel Movements 1 - Exam GENERAL: The patient is alert and oriented x3, not in any acute distress. Well developed, well nourished. HEENT: Pupils are round and equally reacting to light. EOMI. No scleral icterus. No conjunctival pallor. Normocephalic, atraumatic. No pharyngeal erythema. No thyromegaly. CARDIOVASCULAR: S1 and S2 present. No murmurs, rubs, or gallops. PULMONARY: Chest is clear to auscultation, no wheezing , no crackles. ABDOMEN: Soft, nontender, nondistended, normoactive bowel sounds. No palpable organomegaly. MUSCULOSKELETAL: No joint swelling or deformity. -EXTREMITIES: No cyanosis, clubbing, or pedal edema. Right hand swelling tender and mildly erythematous and mildly pinky, there is 2 puncture sites on the dorsum and ventral of the index proximal phalanx. There is some faint swelling and pinkish goes up to the forearm and the distal arm, currently to be seen but the patient states that it was worse. NEUROLOGICAL: Gross neurological examination did not reveal any focal deficits. SKIN: No rashes. no petechiae. - Labs CBC & Chem 7: 11/07/23 04:26 11/07/23 04:26 Labs: Microbiology - Last 24 Hours (Table) 11/06/23 19:06 Blood Culture - Preliminary Blood 11/06/23 19:00 Blood Culture - Preliminary Blood
[2023-11-09 07:39] LABS: Basophils # (A) 0.1 k/uL (0-0.2); Basophils % (A) 1 %; Eosinophils # (A) 0.3 k/uL (0-0.7); Eosinophils % (A) 4 %; HCT 38.6 % (34.0-46.0); HGB 12.2 gm/dL (11.4-16.0); Lymphocytes # (A) 2.2 k/uL (1.0-4.8); Lymphocytes % (A) 30 %; MCH 28.9 pg (25.0-35.0); MCHC 31.6 g/dL (31.0-37.0); MCV 91.3 fL (80.0-100.0); Monocytes # (A) 0.5 k/uL (0-1.0); Monocytes % (A) 7 %; Neutrophils # (A) 4.2 k/uL (1.3-7.7); Neutrophils % (A) 56 %; Platelet Count 231 k/uL (150-450); RBC 4.23 m/uL (3.80-5.40); RDW 14.9 % (11.5-15.5); WBC 7.5 k/uL (3.8-10.6)
[2023-11-09 13:19] VITALS: BP 118/76; PULSE 59; RESP 20; TEMP 98
--- NOTE | 2023-11-09 14:27 | P.PN ---
Subjective Progress Note Date: 11/09/23 Principal diagnosis: Reason for follow-up is right hand cat bite cellulitis Patient is a 43-year-old female presenting to the hospital with the right hand pain swelling redness with a history of cat bite admitted to the hospital for cat bite cellulitis. On today's evaluation that is 11/09/2023, Patient is afebrile this morning and denies any chills, patient mention breathing comfortably and is currently on room air, patient denies any chest pain occasional cough patient denies any abdominal pain no diarrhea no nausea no vomiting, the patient right hand swelling redness much improved. Patient white count normalized to 7.5 blood culture has been negative Objective - Vital Signs Vital signs: Vital Signs Temp 98.3 F 11/09/23 07:18 Pulse 54 L 11/09/23 07:18 Resp 18 11/09/23 07:18 BP 106/62 11/09/23 07:18 Pulse Ox 98 11/09/23 07:18 FiO2 Intake & Output 11/08/23 11/09/23 11/09/23 18:59 06:59 18:59 Intake Total 310 Balance 310 Intake: Intake, IV Titration 310 Amount Ampicillin-Sulbactam 3 gm 200 In Sodium Chloride 0.9% 100 ml @ 200 mls/hr IVPB Q6HR BILLY Rx#:[id number] Sodium Chloride 0.9% 1, 110 000 ml @ 75 mls/hr IV . [id number] STA Rx#:[id number] Other: Voiding Method Toilet # Voids 4 - Exam GENERAL DESCRIPTION: Middle-age female lying in bed in no distress RESPIRATORY SYSTEM: Unlabored breathing , decreased breath sounds at bases HEART: S1 S2 regular rate and rhythm , ABDOMEN: Soft , no tenderness EXTREMITIES: Right hand swelling redness has significantly improved - Labs CBC & Chem 7: 11/09/23 07:16 11/07/23 04:26 Labs: Microbiology - Last 24 Hours (Table) 11/06/23 19:06 Blood Culture - Preliminary Blood 11/06/23 19:00 Blood Culture - Preliminary Blood Assessment and Plan (1) Cellulitis of right hand Status: Acute Code(s): L03.113 - CELLULITIS OF RIGHT UPPER LIMB SNOMED Code(s): 38551669490021129 (2) Cat bite of right hand Status: Acute Code(s): S61.451A - OPEN BITE OF RIGHT HAND, INITIAL ENCOUNTER; W55.01XA - BITTEN BY CAT, INITIAL ENCOUNTER SNOMED Code(s): 483490526 Plan: 1patient with right hand cat bite cellulitis will need to cover for the oral brandon of the cat with no evidence of any more abnormality on the x-ray patient did have elevated white count and low-grade fever has been eval by orthopedics not recommending any surgical drainage 2patient has shown some clinical improvement in the patient white count normalized blood culture negative she will finish therapy with oral Augmentin prescription sent to the pharmacy questions were answered Dictation was produced using [employer] software. please excuse any grammatical, word or spelling errors. Time with Patient: Less than 30
--- NOTE | 2023-11-10 02:10 | P.DS ---
Providers Date of admission: 11/06/23 19:23 Attending physician: Chele Quach Consults: 11/06/23 19:17 Consult Physician Routine Consulting Provider: Denise Patterson Consult Reason/Comments: cat bite hand Do you want consulting provider notified?: Yes 11/07/23 13:22 Consult Physician Routine Consulting Provider: Renea Cordoba Consult Reason/Comments: hand infection Do you want consulting provider notified?: Yes Primary care physician: Stated None Hospital Course: Diagnoses: Assessment/plan: -Right hand/index finger cat bite complicated with right hand cellulitis involving the right hand and extending to a lesser extent into the right forearm and distal arm which is improving. -Nicotine dependence, patient counseled and she agrees to quit. Hospital course: Patient is a pleasant 43 years old female with no significant past medical history. Presents because of right hand pain and swelling. It happened after a cat bit her on night on 11/03. 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 Patient evaluated by orthopedic team who recommended no surgical intervention. Patient treated with Unasyn. Patient showed interval improvement in her hand infection significantly improved and m hand local announcer is a strong again. Patient eager to go home today Patient will be discharged on oral antibiotic therapy. Augmentin x 10 days Problems and management plan were discussed with the patient and he verbalized understanding and acceptance Patient was found stable and can be discharged home in guarded prognosis however he needs follow-up as an outpatient. Patient was instructed to follow up with PCP within one week and patient agrees Patient was instructed to follow-up with Dr. Hunt in 1 week after discharge as well as she agrees Physical exam Gen: patient is a AAOx3, no distress CVS: S1-S2, RRR, no murmur Lungs: B/L CTA, no wheezing Abdomen: soft, no distention, no tenderness, positive bowel sounds -Extremity: no leg edema or induration. Right hand cellulitis of the index finger and hand significantly improved Time spent more than 35 minutes Patient Condition at Discharge: Serious Plan - Discharge Summary Discharge Rx Participant: Yes New Discharge Prescriptions: New Amoxic-Pot Clav 875-125Mg [Augmentin 875-125] 1 tab PO BID 10 Days #20 tab Discharge Medication List Amoxic-Pot Clav 875-125Mg [Augmentin 875-125] 1 tab PO BID 10 Days #20 tab 11/09/23 [Rx] Follow up Appointment(s)/Referral(s): Denise Patterson DO [Doctor of Osteopathic Medicine] - 11/16/23 9:00 am (Bring picture ID and insurance cards. Patient may follow-up with Dr. Denise Patterson at [facility] in 3 to 7 days following discharge. ) None,Stated [Primary Care Provider] - 1-2 days Renea Cordoba MD [STAFF PHYSICIAN] - 1 Week (please call the office to schedule a follow up appointment.) Patient Instructions/Handouts: Animal Bite (DC), Cellulitis (GEN) Discharge/Stand Alone Forms: Area PCPs Discharge Disposition: HOME SELF-CARE
== END 2023-11-09 14:11 | disposition home or self-care (01) | DRG 603 ==
LOC: EC 17:45 → 4SSUR 19:23 → 5NMEDONC 11-08 18:22
PROVIDERS: ADMIT Hospitalist; ATTEND Hospitalist
DX: L03.113 Cellulitis of right upper limb (principal); W55.01XA Bitten by cat, initial encounter; F17.200 Nicotine dependence, unspecified, uncomplicated; Z71.6 Tobacco abuse counseling
CPT/HCPCS: 80053; 83605; 83690; 83735; 83880; 84100; 84484; 85025; 85610; 85730; 87040; 93005; 96365; 96375; 99285